=== PATIENT | male | born 1945 | race African-American/Black ===

== ENCOUNTER 2022-11-07 22:05 | Inpatient (IN) | payer BC, OTHER ==
[~2022-11-07] VITALS: Ht 167.6 cm; Wt 72.7 kg
[~2022-11-07 22:05] MED LIST: AMLO5TAB88 PO; ASPI-785 PO; ATOR-2 PO; COR25 PO; EZET10TA13 PO; FAMO40TA7 PO; LISI20TA31 PO; PENT400T16 PO; [UNRECOGNIZED DRUG - CODE] PO
[2022-11-07 23:52] LABS: BASOPHILS % 0.2 % (0.0-2.0); HEMATOCRIT. 43.4 % (42.0-52.0); HEMOGLOBIN. 14.9 g/dL (14.0-18.0); LYMPHOCYTES % 14.3 % (20.0-50.0); MEAN CORPUSCULAR HEMOGLOBIN 32.3 pg (28.0-32.0); MEAN PLATELET VOLUME 9.1 fl (7.4-10.4); NEUTROPHILS % 78.5 % (40.0-76.0); PLATELET 104 x1000/uL (130-400); RED BLOOD CELL COUNT 4.62 mill/uL (4.7-6.1); RED CELL DISTRIBUTION WIDTH 13.4 % (11.6-14.6)
[2022-11-07 23:59] LABS: INR 1.2; PROTHROMBIN TIME 12.6 sec (9.6-11.0)
[2022-11-08 00:02] LABS: CHLORIDE 103 mEq/L (98-107)
[2022-11-08] MEDS ORDERED: TRAMADOL 50MG TABLET PO ONE (02:00)
[2022-11-08] MEDS ORDERED: TRAM-529 MT (04:05)
[2022-11-08 04:36] LABS: BASOPHILS % 0.1 % (0.0-2.0); EOSINOPHILS % 0.1 % (0.0-5.0); HEMATOCRIT. 46.1 % (42.0-52.0); HEMOGLOBIN. 15.6 g/dL (14.0-18.0); LYMPHOCYTES % 14.4 % (20.0-50.0); MEAN CORPUSCULAR HEMOGLOBIN 32.4 pg (28.0-32.0); MEAN CORPUSCULAR VOLUME 95.8 fL (80.0-94.0); MEAN PLATELET VOLUME 9.5 fl (7.4-10.4); MONOCYTES % 4.5 % (2.0-8.0); NEUTROPHILS % 80.9 % (40.0-76.0); PLATELET 100 x1000/uL (130-400); RED BLOOD CELL COUNT 4.82 mill/uL (4.7-6.1); RED CELL DISTRIBUTION WIDTH 13.6 % (11.6-14.6)
[2022-11-08] MEDS ORDERED: ONDANSETRON HCL 4MG/2ML INJ IV ONE (05:00)
[2022-11-08] MEDS ORDERED: PANTOPRAZOLE SODIUM 40 MG/VIAL IV ONE (05:00)
[2022-11-08 05:03] LABS: CLARITY URINE CLOUDY (CLEAR); COLOR URINE DARK YELLOW (YELLOW); KETONES URINE 1+ (NEGATIVE); LEUKOCYTE ESTERASE URINE NEGATIVE (NEGATIVE); NITRITE URINE NEGATIVE (NEGATIVE); OCCULT BLOOD URINE NEGATIVE (NEGATIVE); PROTEIN URINE 1+ (NEGATIVE)
[2022-11-08] MEDS ORDERED: IOHEXOL-300 100 ML BOTTLE ONE (05:22)
[2022-11-08] MEDS ORDERED: ACETAMINOPHEN 325MG TABLET PO PRN ×2 (06:00)
[2022-11-08] MEDS ORDERED: MAGNESIUM/ALUMINUM HYDROXIDE/SIMETHICONE 30ML UDC PO PRN (06:00)
[2022-11-08] MEDS ORDERED: ONDANSETRON HCL 4MG/2ML INJ IV PRN (06:00)
[2022-11-08] MEDS ORDERED: DEXT 5%/0.45% NACL 500ML 500 ML IV ONE (06:00)
[2022-11-08] MEDS ORDERED: DOCUSATE SODIUM 100MG CAPSULE PO PRN (06:00)
[2022-11-08] MEDS ORDERED: GUAIFENESIN 200MG/10ML SUGAR FREE UDC PO PRN (06:00)
[2022-11-08] MEDS ORDERED: IPRATROPIUM/ALBUTEROL 0.5-3(2.5)MG/3ML NEB HHN PRN (06:00)
[2022-11-08] MEDS ORDERED: NA PHOS,M-B/NA PHOS,DI-BA ENEMA 118ML PR ONE (06:15)
[2022-11-08 07:40] LABS: T4 FREE 0.91 ng/dL (0.76-1.46)
[2022-11-08 10:50] VITALS: BP 179/85
[2022-11-08] MEDS: AMLODIPINE 5MG TABLET PO SCH (10:55)
[2022-11-08] MEDS: CLONIDINE 0.1MG TABLET PO PRN (10:56)
[2022-11-08 12:00] VITALS: BP 179/85
[2022-11-08 16:00] VITALS: BP 127/82
[2022-11-08 20:00] VITALS: BP 138/78
[2022-11-08] MEDS: ATORVASTATIN CALCIUM 40MG TABLET PO SCH (21:00)
[2022-11-09] VITALS: BP 133/64
[2022-11-09 04:00] VITALS: BP 114/63
[2022-11-09 08:00] VITALS: BP 128/67
[2022-11-09] MEDS: AMLODIPINE 5MG TABLET PO SCH (09:00)
[2022-11-09] MEDS: PANTOPRAZOLE SODIUM 40 MG/VIAL IV SCH (09:20)
[2022-11-09 09:39] LABS: BASOPHILS % 0.2 % (0.0-2.0); EOSINOPHILS % 0.3 % (0.0-5.0); HEMATOCRIT. 40.9 % (42.0-52.0); HEMOGLOBIN. 13.8 g/dL (14.0-18.0); LYMPHOCYTES % 19.5 % (20.0-50.0); MEAN CORPUSCULAR HEMOGLOBIN 31.9 pg (28.0-32.0); MEAN CORPUSCULAR VOLUME 94.3 fL (80.0-94.0); MEAN PLATELET VOLUME 9.5 fl (7.4-10.4); PLATELET 99 x1000/uL (130-400); RED BLOOD CELL COUNT 4.33 mill/uL (4.7-6.1); RED CELL DISTRIBUTION WIDTH 13.6 % (11.6-14.6)
[2022-11-09 09:47] LABS: CHLORIDE 104 mEq/L (98-107)
[2022-11-09 12:00] VITALS: BP 113/59
[2022-11-09] MEDS: DEXT 5%/0.9% NACL 1,000 ML IV SCH (15:01)
[2022-11-09 16:00] VITALS: BP 138/64
[2022-11-09 20:00] VITALS: BP 132/63
[2022-11-09] MEDS: ATORVASTATIN CALCIUM 40MG TABLET PO SCH (20:26)
[2022-11-10] VITALS: BP 140/63
[2022-11-10 08:00] VITALS: BP 147/65
[2022-11-10] MEDS: AMLODIPINE 5MG TABLET PO SCH (08:50)
[2022-11-10] MEDS: PANTOPRAZOLE SODIUM 40 MG/VIAL IV SCH (08:50)
[2022-11-10] MEDS: DEXT 5%/0.9% NACL 1,000 ML IV SCH (10:01)
[2022-11-10 12:00] VITALS: BP 149/74
[2022-11-10 16:00] VITALS: BP 131/65
[2022-11-10 20:00] VITALS: BP 176/82
[2022-11-10] MEDS: ATORVASTATIN CALCIUM 40MG TABLET PO SCH (20:28)
[2022-11-10] MEDS: CLONIDINE 0.1MG TABLET PO PRN (22:10)
[2022-11-11] VITALS: BP 124/58
[2022-11-11 04:00] VITALS: BP 118/59
[2022-11-11 08:00] VITALS: BP 124/62
[2022-11-11] MEDS: AMLODIPINE 5MG TABLET PO SCH (08:38)
[2022-11-11] MEDS: PANTOPRAZOLE SODIUM 40 MG/VIAL IV SCH (09:00)
[2022-11-11 12:28] VITALS: BP 154/72
[2022-11-11 16:00] VITALS: BP 146/69
[2022-11-11 16:57] VITALS: BP 146/69
== END 2022-11-11 17:30 | disposition home or self-care (01) | DRG 389 ==
LOC: ER 22:38 → 6EST 11-08 05:32 → EDBEDREQ 11-08 05:50
PROVIDERS: ADMIT Hospitalist; ATTEND Hospitalist
DX: K56.41 Fecal impaction (principal); K56.609 Unspecified intestinal obstruction, unspecified as to partial versus complete obstruction; D69.6 Thrombocytopenia, unspecified; E11.9 Type 2 diabetes mellitus without complications; E78.00 Pure hypercholesterolemia, unspecified; I10 Essential (primary) hypertension; I25.10 Atherosclerotic heart disease of native coronary artery without angina pectoris; N28.1 Cyst of kidney, acquired; Z95.1 Presence of aortocoronary bypass graft; W34.00XA Accidental discharge from unspecified firearms or gun, initial encounter
CPT/HCPCS: 36415; 71045; 74018; 74177; 80053; 80061; 81003; 83036; 83605; 84145; 84439; 84443; 85025; 93005; 93306; 97161; 99285; C9113; J2405; J7042; Q9967